=== PATIENT | female | born 1935 | race Caucasian/White ===

== ENCOUNTER 2023-05-13 16:13 | Inpatient (IN) | payer OTHER ==
--- OUTSIDE RECORDS SUMMARY | 2023-05-13 16:15 | XMS REPORT | Clinical Summary ---
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 0 Active Active Problems No known active problems Surgical History Surgery Date Site/Laterality Comments COLONOSCOPY HYSTERECTOMY UPPER GASTROINTESTINAL ENDOSCOPY Medical History Medical History Date Comments Hypertension 5 years ago Hearing loss Functional visual loss Tooth disorder Ulcer 12-30-15 Polyp 01-29-16 Urinary tract infection Menopause Fracture Complication of internal prosthetic device Presence of other specified device Diabetes mellitus Ovarian Ca Cancer of skin Family History Medical History Relation Name Comments -Endocrine (Thyroid, Pituitary, Adrenal) Daughter matt Relation Name Status Comments Daughter matt Social History Tobacco Use Types Packs/Day Years Used Date Smoking Tobacco: Never Smokeless Tobacco: Never Tobacco Cessation:Ready to Q uit: No Alcohol Use Standard Drinks/Week Comments No 0 (1 standard drink = 0.6 oz pur e alcohol) Sex and Gender Information Value Date Recorded Sex Assigned at Not on file Gender Identity Not on file Sexual Orientation Not on file Obstetrics History Plan of Treatment Health Maintenance Due Date Last Done Comments COVID-19 Vaccination (#1) 02/10/1934
[2023-05-13] MEDS ORDERED: NA CHLORIDE 0.9% 1,000 ML ONE (16:59)
[2023-05-13 17:07] LABS: Specific Gravity 1.014 (1.005-1.030); Urine Bacteria 20-50 /HPF (<20); Urine Bilirubin NEGATIVE (Negative); Urine Blood Negative (Negative); Urine Clarity Extremely Turbid (Clear); Urine Color Light-Yellow (Yellow); Urine Glucose NEGATIVE (Negative); Urine Protein NEGATIVE (Negative); Urine RBC <5 /HPF (None Seen); Urine Urobilinogen Normal (Normal); Urine pH 5.5 (5.0-7.0)
[2023-05-13] MEDS ORDERED: CEFTRIAXONE 1000 MG/VIAL ONE (17:09)
--- NOTE | 2023-05-13 17:11 | RAD REPORT ---
EXAM DESCRIPTION: RAD - Chest Single View - 05/13/2023 5:04 pm CLINICAL HISTORY: CHEST PAIN COMPARISON: No comparisons FINDINGS: Lines: None. Lungs: No evidence of edema or pneumonia. Pleural: No significant pleural effusions or pneumothorax. Cardiac: Cardiomegaly. Pacemaker. Mediastinum: Within normal limits. Bones: No acute fractures. Other: None IMPRESSION: No acute cardiopulmonary disease.
[2023-05-13 17:24] LABS: Absolute Lymphocytes (CBC) 2.2 K/uL (0.7-4.9); Albumin 2.8 g/dL (3.4-5.0); Bilirubin Direct 0.1 mg/dL (0-0.2); Bilirubin Indirect, Calculated 0.3 mg/dL (0.2-0.8); Bilirubin Total 0.4 mg/dL (0.2-1.0); Hematocrit 19.3 % (36.0-45.0); Lymphocytes % 20.6 % (15.3-44.8); MCV 85.9 fL (80-100); MPV 6.9 fL (7.6-11.3); Magnesium 2.1 mg/dL (1.6-2.4); Platelets 471 thou/uL (152-406); Protein, Total 6.2 g/dL (6.4-8.2); RBC Red Blood Cell Count 2.25 M/uL (3.86-4.86); Troponin High Sensitivity 10.8 pg/mL (<58.9)
--- NOTE | 2023-05-13 17:40 | RAD REPORT ---
EXAM DESCRIPTION: CT - [id number] - 05/13/2023 5:28 pm CLINICAL HISTORY: Trauma, head and neck injury. DIZZINESS COMPARISON: No comparisons TECHNIQUE: Axial 5 mm thick images of the head were obtained. Axial 2 mm thick images of the cervical spine were obtained with sagittal and coronal reconstruction images generated and reviewed. All CT scans are performed using dose optimization technique as appropriate and may include automated exposure control or mA/KV adjustment according to patient size. FINDINGS: CT HEAD WITHOUT CONTRAST: No acute hemorrhage, hydrocephalus or extra-axial collection is identified.No areas of brain edema or midline shift. Mild chronic small vessel ischemic changes. Small area of white matter hypoattenuatio n at the left occipital lobe. The paranasal sinuses and mastoids are clear.The calvarium is intact. CT CERVICAL SPINE WITHOUT CONTRAST: No fracture or subluxation.No prevertebral soft tissues swelling is identified. Approximate 2 mm ante rolisthesis of C4 on C5. Mild cervical spondylosis with neural foraminal narrowing IMPRESSION: No definite acute intracranial or cervical spine findings.Possible left occipital lobe c ortical infarct that would be favored chronic. MRI could better establish acuity.
--- NOTE | 2023-05-13 17:55 | EDPHYS ---
Physician Documentation [facility] Name: Milagro Cody Age: 87 yrs Sex: Female : 1935 Arrival Date: 05/13/2023 Time: 16:13 Bed 19 Private MD: ED Physician Nick Small HPI: 05/13 16:43 This 87 yrs old Female presents to ER via EMS with complaints of weakness. sb4 16:45 patient reports generalized weakness and dizziness x 3 days that is progressively sb4 worsening. she feels like it is secondary to her blood pressure being lower than usual. no other complaints, no chest pain, sob, fever, chills, urinary symptoms. Historical: - Allergies: 16:23 Eliquis; as6 16:23 Iodine; as6 - PMHx: 16:23 gastric ulcer; Diabetes mellitus; Hypertensive disorder; as6 - PSHx: 16:23 pacemaker; as6 - Immunization history:: Adult Immunizations up to date. - Social history:: Smoking status: Patient denies any tobacco usage or history of. ROS: 16:45 Constitutional: Negative for fever, chills, and weight loss, sb4 16:45 Neuro: Positive for weakness, Exam: 16:45 Constitutional: This is a well developed, well nourished patient who is awake, alert, sb4 and in no acute distress. Head/Face: Normocephalic, atraumatic. Eyes: Extra-ocular motions intact. Periorbital areas with no swelling, redness, or edema. ENT: Mucous membranes moist. Cardiovascular: Regular rate and rhythm with a normal S1 and S2. Respiratory: Lungs have equal breath sounds bilaterally, clear to auscultation and percussion. No rales, rhonchi or wheezes noted. No increased work of breathing, no retractions or nasal flaring. Abdomen/GI: Soft, non-tender, no distension. Skin: Warm, dry with normal turgor. Normal color with no rashes, no lesions, and no evidence of cellulitis. MS/ Extremity: Pulses equal, no cyanosis. Neurovascular intact. Full, normal range of motion. Neuro: Awake and alert, GCS 15, oriented to person, place, time, and situation. Motor strength 5/5 in all extremities. Sensory grossly intact. 18:00 Abdomen/GI: Rectal exam: is unremarkable, rectal tone normal, Stool: brown, sb4 Vital Signs: 16:25 BP 101 / 51; Pulse 80; Resp 17 S; Temp 97.7(O); Pulse Ox 100% on R/A; Weight 73.03 kg as6 (R); Height 5 ft. 2 in. (R); Pain 0/10; 17:30 BP 114 / 48; Pulse 80; Resp 18; Pulse Ox 100% ; cp4 18:30 BP 111 / 53; Pulse 80; Resp 18; Pulse Ox 98% ; cp4 19:00 BP 124 / 47; Pulse 80; Pulse Ox 100% on R/A; nw1 19:30 BP 128 / 54; Pulse 80; Resp 19; Pulse Ox 100% on R/A; nw1 20:15 BP 110 / 52; Pulse 80; Pulse Ox 100% ; nw1 20:19 BP 124 / 49; Pulse 80; Resp 18; Pulse Ox 96% on R/A; nw1 16:25 Body Mass Index 29.45 (73.03 kg, 157.48 cm) as6 16:25 Pain Scale: Adult as6 MDM: 16:16 Patient medically screened. sb4 17:54 Data reviewed: vital signs, nurses notes, EMS record, lab test result(s), EKG, sb4 radiologic studies, and as a result, I will admit patient. Consideration of Admission/Observation Patient was admitted/placed on observation. Historians other than the Patient: Family Member: granddaughter. Care significantly affected by the following chronic conditions: Diabetes, Hypertension. Counseling: I had a detailed discussion with the patient and/or guardian regarding the historical points, exam findings, and any diagnostic results supporting the discharge/admit diagnosis, lab results, radiology results, the need for further work-up and treatment in the hospital. 05/13 16:37 Order name: Basic Metabolic Panel; Complete Time: 17:25 sb4 05/13 16:37 Order name: CBC with Diff; Complete Time: 17:25 sb4 05/13 16:37 Order name: LFT's; Complete Time: 17:25 sb4 05/13 16:37 Order name: Magnesium; Complete Time: 17:25 sb4 05/13 16:37 Order name: Troponin HS; Complete Time: 17:25 sb4 05/13 16:37 Order name: UAM; Complete Time: 17:07 sb4 05/13 16:52 Order name: COVID-19/FLU A+B/RSV sb4 05/13 17:07 Order name: Urine Culture sb4 05/13 17:30 Order name: Type And Screen sb4 05/13 17:33 Order name: Bb Add On eb 05/13 17:44 Order name: Packed RBC Leukored EDLA 05/13 18:43 Order name: ABO/RH no charge EDMS 05/13 19:27 Order name: Urinalysis w/ reflexes EDMS 05/13 19:27 Order name: CBC with Automated Diff EDMS 05/13 19:27 Order name: CBC with Automated Diff EDMS 05/13 19:27 Order name: Comprehensive Metabolic Panel EDMS 05/13 19:27 Order name: Comprehensive Metabolic Panel EDMS 05/13 19:27 Order name: Magnesium EDMS 05/13 19:27 Order name: Magnesium EDMS 05/13 19:27 Order name: Troponin High Sensitivity EDMS 05/13 19:27 Order name: Troponin High Sensitivity EDMS 05/13 20:11 Order name: Hematocrit EDMS 05/13 20:11 Order name: Hemoglobin EDMS 05/13 16:37 Order name: XRAY Chest (1 view); Complete Time: 17:13 sb4 05/13 17:25 Order name: Head C Spine Mpr Wo Con; Complete Time: 17:53 EDMS 05/13 16:37 Order name: EKG; Complete Time: 16:38 sb4 05/13 19:27 Order name: CONS Physician Consult EDLA 05/13 16:37 Order name: Cardiac monitoring; Complete Time: 16:39 sb4 05/13 16:37 Order name: EKG - Nurse/Tech; Complete Time: 16:39 sb4 05/13 16:37 Order name: IV Saline Lock; Complete Time: 16:39 sb4 05/13 16:37 Order name: Labs collected and sent; Complete Time: 16:39 sb4 05/13 16:37 Order name: O2 Per Protocol; Complete Time: 16:39 sb4 05/13 16:37 Order name: O2 Sat Monitoring; Complete Time: 16:39 sb4 EC:45 Rate is 80 beats/min. Rhythm is regular, Paced. [place] interval is normal at 152 msec. QRS sb4 interval is normal at 172 msec. QT interval is normal at 452 msec. No Q waves. Interpreted by me. Reviewed by me. Administered Medications: 16:57 Drug: NS 0.9% IV 1000 ml IV at 1 bolus Per protocol; 1000 mL bolus Route: IV; Rate: 1 cp4 bolus; Site: right antecubital; 18:15 Follow up: Response: No adverse reaction; IV Status: Completed infusion cp4 17:16 Drug: Rocephin IV 1 grams IV at calculated rate once; Given slow IV push per pharmacy cp4 instructions Route: IV; Rate: calculated rate; Site: right antecubital; 18:14 Follow up: Response: No adverse reaction; IV Status: Completed infusion cp4 Disposition: 05/14 09:54 Co-signature as Attending Physician, Nick Small MD I reviewed the patient's care rt provided by the Advanced Practice Provider and agree with the diagnosis and treatment plan. Disposition Summary: 05/13/23 17:55 Hospitalization Ordered Notes: Hospitalization Status: Inpatient Admission sb4 Provider: Pranav Munoz sb4 [facility] Condition: Fair sb4 Problem: new sb4 Symptoms: are unchanged sb4 Bed/Room Type: Standard sb4 Room Assignment: 232(05/13/23 19:35) rv1 Diagnosis - Anemia, unspecified sb4 - Hypotension, unspecified sb4 Forms: - Medication Reconciliation Form sb4 - SBAR form sb4 - Leadership Thank You Letter sb4 Signatures: Dispatcher [employer] Kelby Romo RN RN as6 Jeaneth Wang PA-C PAAdriane sb4 Nick Small MD MD rt Randee Rizvi rv1 Kyara Urrutia cp4 Corrections: (The following items were deleted from the chart) 05/13 17:25 16:38 Head Brain Wo Cont+CT.RAD.BRZ ordered. EDMS EDMS 19:35 17:55 sb4 rv1 20:16 20:11 Packed RBC Leukored ordered. EDMS EDMS 20:16 20:12 ABO/RH typing ordered. EDMS EDMS 20:16 20:12 Antibody Screen ordered. EDMS EDMS
--- NOTE | 2023-05-13 17:55 | ER ---
Nurse's Notes [facility] Name: Milagro Cody Age: 87 yrs Sex: Female : 1935 Arrival Date: 05/13/2023 Time: 16:13 Bed 19 Private MD: Diagnosis: Anemia, unspecified;Hypotension, unspecified Presentation: 05/13 16:25 Chief complaint: EMS states: dizziness for several days with worsening symptoms today. as6 Coronavirus screen: At this time, the client does not indicate any symptoms associated with coronavirus-19. Ebola Screen: No symptoms or risks identified at this time. Initial Sepsis Screen: Does the patient meet any 2 criteria? No. Patient's initial sepsis screen is negative. Does the patient have a suspected source of infection? No. Patient's initial sepsis screen is negative. Risk Assessment: Do you want to hurt yourself or someone else? Patient reports no desire to harm self or others. Onset of symptoms was May 13, 2023. 16:25 Acuity: PEDRO 3 as6 16:25 Method Of Arrival: EMS: [email or web address] as6 Historical: - Allergies: 16:23 Eliquis; as6 16:23 Iodine; as6 - PMHx: 16:23 gastric ulcer; Diabetes mellitus; Hypertensive disorder; as6 - PSHx: 16:23 pacemaker; as6 - Immunization history:: Adult Immunizations up to date. - Social history:: Smoking status: Patient denies any tobacco usage or history of. Screenin:[address] [facility] ED Fall Risk Assessment (Adult) History of falling in the last 3 months, cp4 including since admission No falls in past 3 months (0 pts). [facility] ED Fall Risk Assessment (Adult) Confusion or Disorientation No (0 pts) Intoxicated or Sedated No (0 pts) Impaired Gait No (0 pts) Mobility Assist Device Used No (0 pt) Altered Elimination No (0 pt) Score/Fall Risk Level 0 - 2 = Low Risk Oriented to surroundings, Maintained a safe environment, Educated pt \T\ family on fall prevention, incl call for assistance when getting out of bed, Assessed \T\ reinforced patient's understanding of fall precautions, Provided non-skid footwear, Hourly rounding (assess needs \T\ fall precautionary measures) done. Abuse screen: Denies threats or abuse. Nutritional screening: No deficits noted. Tuberculosis screening: No symptoms or risk factors identified. Assessment: 17:46 Pain: Denies pain. cp4 Vital Signs: 16:25 BP 101 / 51; Pulse 80; Resp 17 S; Temp 97.7(O); Pulse Ox 100% on R/A; Weight 73.03 kg as6 (R); Height 5 ft. 2 in. (R); Pain 0/10; 17:30 BP 114 / 48; Pulse 80; Resp 18; Pulse Ox 100% ; cp4 18:30 BP 111 / 53; Pulse 80; Resp 18; Pulse Ox 98% ; cp4 19:00 BP 124 / 47; Pulse 80; Pulse Ox 100% on R/A; nw1 19:30 BP 128 / 54; Pulse 80; Resp 19; Pulse Ox 100% on R/A; nw1 20:15 BP 110 / 52; Pulse 80; Pulse Ox 100% ; nw1 20:19 BP 124 / 49; Pulse 80; Resp 18; Pulse Ox 96% on R/A; nw1 16:25 Body Mass Index 29.45 (73.03 kg, 157.48 cm) as6 16:25 Pain Scale: Adult as6 ED Course: 16:15 Patient arrived in ED. cp4 16:16 Jeaneth Wang PA-C is PHCP. sb4 16:16 Nick Small MD is Attending Physician. sb4 16:23 Arm band placed on. as6 16:26 Triage completed. as6 16:26 Maintain EMS IV. Dressing intact. Good blood return noted. Site clean \T\ dry. Gauge \T\ as 6 site: 20g RAC. 16:39 Kyara Urrutia is Primary Nurse. cp4 16:57 UAM Sent. cp4 16:57 Basic Metabolic Panel Sent. cp4 16:57 CBC with Diff Sent. cp4 16:57 LFT's Sent. cp4 16:57 Magnesium Sent. cp4 16:57 Troponin HS Sent. cp4 17:06 XRAY Chest (1 view) In Process Unspecified. EDMS 17:29 Head C Spine Mpr Wo Con In Process Unspecified. EDMS 17:46 Bed in low position. Call light in reach. Side rails up X2. cp4 17:54 Pranav Munoz is Hospitalizing Provider. sb4 20:15 Kadie Cody, RN is Primary Nurse. nw1 20:35 Inserted saline lock: 20 gauge in left hand, using aseptic technique. nw1 20:37 Patient admitted, IV remains in place. nw1 Administered Medications: 16:57 Drug: NS 0.9% IV 1000 ml IV at 1 bolus Per protocol; 1000 mL bolus Route: IV; Rate: 1 cp4 bolus; Site: right antecubital; 18:15 Follow up: Response: No adverse reaction; IV Status: Completed infusion cp4 17:16 Drug: Rocephin IV 1 grams IV at calculated rate once; Given slow IV push per pharmacy cp4 instructions Route: IV; Rate: calculated rate; Site: right antecubital; 18:14 Follow up: Response: No adverse reaction; IV Status: Completed infusion cp4 Medication: 17:46 VIS not applicable for this client. cp4 Outcome: 17:55 Decision to Hospitalize by Provider. sb4 20:20 Admitted to Tele accompanied by tech, room 232, with chart, Report called to LILI Alcaraz nw1 20:20 Condition: stable 20:20 Instructed on the need for admit, 21:15 Patient left the ED. nw1 Signatures: Dispatcher [employer] EDMS Kelby Isbell RN RN as6 Jeaneth Wang, PA-C PA-C sb4 Kyara Urrutia cp4 Kadie Cody, RN RN nw1
[2023-05-13] MEDS ORDERED: ACETAMINOPHEN 325 MG TABLET PO PRN (19:23)
[2023-05-13] MEDS ORDERED: SODIUM CHLORIDE 0.9% 10ML INJ IV PRN (19:25)
[2023-05-13] MEDS ORDERED: D50W 25 GM/50 ML SYRINGE IV PRN (19:28)
[2023-05-13] MEDS ORDERED: GLUCAGON 1 MG/VIAL IM PRN (19:28)
[2023-05-13] MEDS: FUROSEMIDE 20 MG/ 2ML VIAL IV ONE (20:07)
--- NOTE | 2023-05-13 20:07 | P.HP ---
Certification for Inpatient With expected LOS: >2 Midnights Practitioner: I am a practitioner with admitting privileges, knowledge of patient current condition, hospital course, and medical plan of care. Services: Services provided to patient in accordance with Admission requirements found in Title 42 Section 412.3 of the Code of Federal Regulations Patient History Date of Service: 05/13/23 Reason for admission: GI bleed History of Present Illness: 87-year-old female with a history of diabetes mellitus, A-fib on Eliquis, gastric ulcer, pacemaker and hypertension was brought to the ED with weakness a nd dizziness for the last 3 to 4 days that worsened today. Patient had no falls and denied any blurring of vision, fever, headaches, abdominal pain, nausea, vomiting or diarrhea. She reported some episodes of dark tarry stools last week. On arrival to the ER initial BP was 101/51. Labs showed H&H 6.8/19.3, glucose 214, Na 130 and BUN/Cr 40/1.42. Chest x-ray was negative. She was given IV fluid bolus and a gram of Rocephin. 2 units PRBC ordered. Allergies No Known Allergies Allergy (Unverified 05/29/11 22:09) Home Medications: NK 05/29/11 Review of Systems 10-point ROS is otherwise unremarkable Physical Examination - Vital Signs Temperature: 97.7 F Blood Pressure: 101/51 Pulse: 80 Respirations: 17 Pulse Ox (%): 100 - Physical Exam General: Alert, Oriented x3 HEENT: Atraumatic, Normocephalic, PERRLA, Other (Pale) Neck: JVD not distended Respiratory: Clear to auscultation bilaterally, Normal air movement Cardiovascular: Normal pulses, Regular rate/rhythm, Normal S1 S2 Gastrointestinal: Normal bowel sounds, Soft and benign, Non-distended, No tenderness Musculoskeletal: No swelling, No erythema, No tenderness Integumentary: No breakdown, No significant lesion, No tenderness/swelling Neurological: Normal speech, Normal strength at 5/5 x4 extr, Sensation intact - Studies Laboratory Data (last 24 hrs) 05/13/23 05/13/23 16:40 16:40 WBC 10.80 Hgb 6.8 L Hct 19.3 L Plt Count 471 H Sodium 130 L Potassium 5.0 BUN 40 H Creatinine 1.42 H Glucose 214 H Magnesium 2.1 Total Bilirubin 0.4 AST 10 L ALT 17 Alkaline Phosphatase 76 Assessment and Plan - Plan Melena Acute blood loss anemia Orthostatic hypotension Acute kidney injury Diabetes mellitus Atrial Fibrillation coagulated with Eliquis History of hypertension Plan IV Protonix twice daily Transfusing 2 units PRBC Follow-up posttransfusion H&H GI consult Hold Eliquis NS at 100 cc/h Blood glucose monitoring with sliding scale insulin - Advance Directives Does patient have a Living Will: No Does patient have a Durable POA for Healthcare: No
[2023-05-13] MEDS: INSULIN REGULAR (HUMAN) 100 UNIT/ML SQ SCH (21:00)
[2023-05-13] MEDS ORDERED: NA CHLORIDE 0.9% 250 ML IV SCH (21:00)
[2023-05-13] MEDS ORDERED: D10W 125 ML IV PRN (21:17)
[2023-05-13] MEDS ORDERED: NA CHLORIDE 0.9% 250 ML ONE (22:18)
[2023-05-13] MEDS: NA CHLORIDE 0.9% 1,000 ML IV SCH (22:26)
[2023-05-13] MEDS: PANTOPRAZOLE 40 MG INJ IVP SCH (22:27)
[2023-05-14] VITALS: BMI 29.4
[2023-05-14] MEDS ORDERED: FUROSEMIDE 20 MG/ 2ML VIAL ONE (04:49)
[2023-05-14] MEDS: FUROSEMIDE 20 MG/ 2ML VIAL IV ONE (04:53)
[2023-05-14 07:16] LABS: Absolute Lymphocytes (CBC) 4.1 K/uL (0.7-4.9); Hematocrit 29.4 % (36.0-45.0); Lymphocytes % 27.4 % (15.3-44.8); MCV 84.1 fL (80-100); MPV 6.8 fL (7.6-11.3); Platelets 438 thou/uL (152-406)
[2023-05-14] MEDS: INSULIN REGULAR (HUMAN) 100 UNIT/ML SQ SCH ×4 (07:30→21:00)
[2023-05-14 07:32] LABS: Albumin 2.8 g/dL (3.4-5.0); Bilirubin Total 0.5 mg/dL (0.2-1.0); Magnesium 2.2 mg/dL (1.6-2.4); Potassium 4.3 mEq/L (3.5-5.1); Protein, Total 6.6 g/dL (6.4-8.2); Troponin High Sensitivity 18.6 pg/mL (<58.9)
[2023-05-14] MEDS: PANTOPRAZOLE 40 MG INJ IVP SCH ×2 (08:22→21:04)
[2023-05-14] MEDS: NA CHLORIDE 0.9% 1,000 ML IV SCH ×2 (09:20→17:43)
--- NOTE | 2023-05-14 13:54 | P.PN ---
Subjective Date of Service: 05/14/23 Chief Complaint: GI bleed Patient has no new complaint today. She denies abdominal pain. She reports a episode of black stool yesterday. She denies any dizziness now. Physical Examination - Vital Signs Temperature: 98.0 F Blood Pressure: 127/61 Pulse: 80 Respirations: 17 Pulse Ox (%): 99 - Studies Laboratory Data (last 24 hrs) 05/13/23 05/13/23 16:40 16:40 WBC 10.80 Hgb 6.8 L Hct 19.3 L Plt Count 471 H Sodium 130 L Potassium 5.0 BUN 40 H Creatinine 1.42 H Glucose 214 H Magnesium 2.1 Total Bilirubin 0.4 AST 10 L ALT 17 Alkaline Phosphatase 76 Assessment And Plan - Plan Physical Examination General: Well-built, Not in acute distress. Frail appearing HEENT: Anicteric sclera, conjunctiva not pale. Neck: Supple, no elevated JVD. Lungs: Clear to auscultation bilaterally. No rhonchi, no rales, no crackles. Heart: S1-S2 heard, normal rate, no murmur no gallop no rub. Normal capillary refill. Abdomen: Soft, nontender, nondistended, no hepatosplenomegaly. Extremities: No pedal edema. No deformity. Neuro: No cranial nerve deficit, no focal motor deficit. Psychiatry: Awake, normal behavior, normal affect. Skin: Warm and dry, no rashes. Diagnosis GI bleed Acute blood loss anemia Acute kidney injury Diabetes mellitus Atrial Fibrillation coagulated with Eliquis Essential hypertension Plan GI Bleed Acute blood loss anemia/symptomatic anemia Patient reports remote history of peptic ulcer disease. GI bleed likely secondary to peptic ulcer. Status post 2 unit PRBC transfusion. Posttransfusion hemoglobin is up to [address] Rodríguez consulted. Dr. Rodríguez recommended EGD today Monitor H&H and transfuse as needed for hemoglobin less than 7 Monitor for active bleeding. Xarelto is on hold Acute kidney injury Serum creatinine is improving with IV fluid. Continue IV normal saline. Monitor renal function. Diabetes mellitus type 2 Insulin sliding scale for glucose management. Chronic atrial fibrillation/long-term anticoagulation Continue Coreg once diet is resumed. Hold Xarelto due to GI bleed. Essential Hypertension Coreg resumed for atrial fibrillation. Monitor blood pressure closely DVT prophylaxis: SCD.
[2023-05-14] MEDS: ISOSORBIDE DINIT 5 MG TAB PO SCH ×2 (14:45→21:04)
[2023-05-14] MEDS: carvediloL 25 MG TAB PO SCH (17:33)
[2023-05-14] MEDS: ATORVASTATIN 80 MG TAB PO SCH (21:04)
[2023-05-15 06:48] LABS: Potassium 4.2 mEq/L (3.5-5.1)
[2023-05-15] MEDS: NA CHLORIDE 0.9% 1,000 ML IV SCH ×2 (06:56→20:04)
[2023-05-15] MEDS: INSULIN REGULAR (HUMAN) 100 UNIT/ML SQ SCH ×4 (07:30→20:04)
[2023-05-15] MEDS: CEFTRIAXONE 1,000 MG in NA CHLORIDE 0.9% 50 ML IVPB SCH (08:31)
[2023-05-15] MEDS: PANTOPRAZOLE 40 MG INJ IVP SCH ×2 (08:32→20:03)
[2023-05-15] MEDS: SPIRONOLACTONE 25 MG TABLET PO SCH (08:39)
[2023-05-15] MEDS: EZETIMIBE 10 MG TAB PO SCH (08:40)
[2023-05-15] MEDS: carvediloL 25 MG TAB PO SCH ×2 (08:40→16:50)
[2023-05-15] MEDS: ISOSORBIDE DINIT 5 MG TAB PO SCH ×3 (08:41→20:03)
--- NOTE | 2023-05-15 09:54 | P.PN ---
Date of Service: 05/15/23 Subjective: tentative plan for EGD today no acute events overnight given 2 uPRBC yesterday reports having peptic ulcer ~2015 HR stable, afebrile, BP intermittently low-normal ROS: 10 point ROS as noted above, otherwise negative Physical Exam: GEN: Alert, oriented, frail appearing HEENT: Normal conjunctiva, sclera anicteric, CV: Regular rate and rhythm, no edema Pulm: Nonlabored respirations on room air, clear bilaterally ABD: soft, nontender, nondistended Neuro: Normal speech, normal affect, hard of hearing Problem List: Acute blood loss anemia/symptomatic anemia likely secondary to GI bleed h/o peptic ulcer disease E. coli bacteriuria TREVON NIDDM2 Chronic Atrial-Fibrillation, on Eliquis Essential hypertension Acute blood loss anemia/symptomatic anemia likely secondary to GI bleed h/o peptic ulcer disease CT head (05/13): no definite acute intracranial findings. possible left occipital lobe cortical infarct would be favored chronic Patient reports remote history of peptic ulcer disease ~2015 GI bleed likely secondary to peptic ulcer. s/p 2 uPRBC (05/13, 05/14) Continue to monitor H&H. Transfuse for hgb < 7. hgb 10.1 -> 8.5 (05/15) Monitor for active bleeding. Xarelto on hold given bleed continue PPI GI consulted tentative plan for EGD today with Dr. Burgos E. coli bacteriuria urine cx (05/13): E. Coli Start empiric rocephin (05/15-) afebrile, no leukocytosis TREVON continue IV fluids Continue to monitor renal function improving NIDDM2 Accu-checks, Insulin sliding scale Chronic Atrial-Fibrillation, on Eliquis Xarelto on hold due to GI bleed. Continue home coreg Essential Hypertension Continue home coreg VTE: SCD for now given GI bleed. Code: Full Dispo: Home . ~1-2 days Pending EGD, hgb stabilizes
[2023-05-15] MEDS ORDERED: LIDOCAINE 1% MPF 5 ML VIAL ONE (12:34)
[2023-05-15] MEDS ORDERED: propofoL 200 MG/20 ML VIAL IV ONE (12:34)
[2023-05-15] MEDS ORDERED: EPINEPHRINE 1 MG/ML VIAL ONE (12:56)
[2023-05-15] MEDS ORDERED: GOLYTELY 4000 ML PO SCH (14:00)
[2023-05-15] MEDS ORDERED: BISACODYL E.C. 5 MG TAB PO ONE (14:30)
[2023-05-15] MEDS ORDERED: MAGNESIUM CITRATE 300 ML BOT PO SCH ×2 (14:30→15:00)
[2023-05-15] MEDS ORDERED: BISACODYL E.C. 5 MG TAB PO SCH (15:00)
[2023-05-15] MEDS: METOCLOPRAMIDE 10 MG/2mL INJ IV SCH ×2 (15:13→18:16)
[2023-05-15] MEDS ORDERED: ONDANSETRON 4 MG/2 ML VIAL IV PRN (19:35)
[2023-05-15] MEDS: ATORVASTATIN 80 MG TAB PO SCH (20:03)
[2023-05-16] MEDS: METOCLOPRAMIDE 10 MG/2mL INJ IV SCH (00:04)
[2023-05-16] MEDS: INSULIN REGULAR (HUMAN) 100 UNIT/ML SQ SCH ×4 (07:30→21:00)
[2023-05-16 07:35] LABS: Absolute Lymphocytes (CBC) 2.7 K/uL (0.7-4.9); Hematocrit 26.6 % (36.0-45.0); Lymphocytes % 23.2 % (15.3-44.8); MCV 85.4 fL (80-100); MPV 6.5 fL (7.6-11.3); Platelets 430 thou/uL (152-406); RBC Red Blood Cell Count 3.11 M/uL (3.86-4.86)
[2023-05-16 07:52] LABS: Magnesium 2.4 mg/dL (1.6-2.4); Potassium 3.8 mEq/L (3.5-5.1)
[2023-05-16] MEDS: SPIRONOLACTONE 25 MG TABLET PO SCH (08:17)
[2023-05-16] MEDS: CEFTRIAXONE 1,000 MG in NA CHLORIDE 0.9% 50 ML IVPB SCH (08:18)
[2023-05-16] MEDS: carvediloL 25 MG TAB PO SCH ×2 (08:18→17:10)
[2023-05-16] MEDS: EZETIMIBE 10 MG TAB PO SCH (08:18)
[2023-05-16] MEDS: PANTOPRAZOLE 40 MG INJ IVP SCH ×2 (08:19→21:14)
[2023-05-16] MEDS: ISOSORBIDE DINIT 5 MG TAB PO SCH ×3 (08:19→21:14)
--- NOTE | 2023-05-16 08:27 | P.PN ---
Date of Service: 05/16/23 Subjective: s/p 4 enemas overnight/today had EGD yesterday; plan for colonoscopy today +dark black stool noted overnight denies UTI symptoms afebrile ROS: 10 point ROS as noted above, otherwise negative Physical Exam: GEN: Alert, oriented, frail appearing HEENT: Normal conjunctiva, sclera anicteric, CV: Regular rate and rhythm, no edema Pulm: Nonlabored respirations on room air, clear bilaterally ABD: soft, nontender, nondistended Neuro: Normal speech, normal affect, hard of hearing Problem List: Acute blood loss anemia/symptomatic anemia likely secondary to GI bleed Grade 1 Esophagitis, Mild diffuse gastritis h/o peptic ulcer disease E. coli bacteriuria TREVON on CKD 3 NIDDM2 Chronic Atrial-Fibrillation, on anticoagulation Essential hypertension Acute blood loss anemia/symptomatic anemia likely secondary to GI bleed Grade 1 Esophagitis, Mild diffuse gastritis h/o peptic ulcer disease CT head (05/13): no definite acute intracranial findings. possible left occipital lobe cortical infarct would be favored chronic Patient reports remote history of peptic ulcer disease ~2015 s/p 2 uPRBC (05/13, 05/14) Continue to monitor H&H. Transfuse for hgb < 7. hgb 8.9 -> 9.0 (05/16) Monitor for active bleeding. Xarelto on hold given bleed continue PPI GI consulted s/p EGD (05/16): found to have acute grade 1 esophagitis, mild diffuse gastritis. No obvious bleeding. tentative plan for colonoscopy today follow up in GI clinic in ~1-2 weeks Follow biopsies E. coli bacteriuria urine cx (05/13): E. Coli continue empiric rocephin (05/15-) afebrile, no leukocytosis asymptomatic TREVON on CKD 3 continue IV fluids Continue to monitor renal function improving NIDDM2 Accu-checks, Insulin sliding scale Chronic Atrial-Fibrillation, on anticoagulation Xarelto on hold due to GI bleed. Continue home coreg Essential Hypertension Continue home coreg VTE: SCD for now given GI bleed. Code: Full Dispo: Home . ~1-2 days Pending colonoscopy, hgb remains stable
[2023-05-16] MEDS ORDERED: NA CHLORIDE 0.9% 1,000 ML ONE (09:30)
[2023-05-16] MEDS: NA CHLORIDE 0.9% 1,000 ML IV SCH ×2 (09:42→23:02)
[2023-05-16] MEDS ORDERED: propofoL 200 MG/20 ML VIAL IV ONE (10:08)
[2023-05-16 11:20] VITALS: O2SAT 97
[2023-05-16] MEDS: ATORVASTATIN 80 MG TAB PO SCH (21:13)
[2023-05-17 06:09] LABS: Hematocrit 22.9 % (36.0-45.0); MCV 85.2 fL (80-100); MPV 6.9 fL (7.6-11.3); Platelets 391 thou/uL (152-406); RBC Red Blood Cell Count 2.69 M/uL (3.86-4.86)
[2023-05-17 06:12] LABS: Potassium 4.1 mEq/L (3.5-5.1)
[2023-05-17] MEDS: INSULIN REGULAR (HUMAN) 100 UNIT/ML SQ SCH ×4 (07:30→20:23)
--- NOTE | 2023-05-17 09:36 | P.PN ---
Date of Service: 05/17/23 Subjective: small BM this morning - yellowish had small bowel series today, hasn't really eaten much in last few days no epigastric pain ROS: 10 point ROS as noted above, otherwise negative Physical Exam: GEN: Alert, oriented, frail appearing HEENT: Normal conjunctiva, sclera anicteric CV: Regular rate and rhythm, no edema Pulm: Nonlabored respirations on room air, clear bilaterally ABD: soft, nontender, nondistended Neuro: Normal speech, normal affect, hard of hearing Problem List: Acute blood loss anemia/symptomatic anemia likely secondary to GI bleed Grade 1 Esophagitis, Mild diffuse gastritis, Internal Hemorrhoids h/o peptic ulcer disease E. coli bacteriuria TREVON on CKD 3 NIDDM2 Chronic Atrial-Fibrillation, on anticoagulation Essential hypertension Acute blood loss anemia/symptomatic anemia likely secondary to GI bleed Grade 1 Esophagitis, Mild diffuse gastritis, Internal Hemorrhoids h/o peptic ulcer disease CT head (05/13): no definite acute intracranial findings. possible left occipital lobe cortical infarct would be favored chronic Patient reports remote history of peptic ulcer disease ~2015 s/p 2 uPRBC (05/13, 05/14) hgb 9 -> 8 (05/17) Monitor for active bleeding. Xarelto on hold given bleed continue PPI GI consulted s/p EGD (05/15): found to have acute grade 1 esophagitis, mild diffuse gastritis. No obvious bleeding. s/p colonoscopy (05/16): found internal hemorrhoids - not actively bleeding, intubation to terminal ileum Small bowel xray (05/17): normal small bowel series recommends capsule endoscopy. follow up in GI clinic in ~1-2 weeks Follow biopsies E. coli bacteriuria urine cx (05/13): E. Coli afebrile, leukocytosis resolved asymptomatic completed antibiotics TREVON on CKD 3 IV fluids dc'd 05/16 continue spironolactone Continue to monitor renal function improving NIDDM2 Accu-checks, Insulin sliding scale Chronic Atrial-Fibrillation, on anticoagulation Xarelto on hold due to GI bleed. Continue home coreg Essential Hypertension Continue home coreg VTE: SCD for now given GI bleed. Code: Full Dispo: Home ~1 day Pending hgb stabilizes / tolerates PO
--- NOTE | 2023-05-17 09:42 | RAD REPORT ---
EXAM DESCRIPTION: RAD - Small Bowel Series - 05/17/2023 9:31 am CLINICAL HISTORY: Occult GI bleed COMPARISON: No comparisons FINDINGS: [employer] Technician film shows a nonspecific bowel gas pattern. No obstruction or free air. No suspiciou s calcifications. Pacemaker/ICD. Left femoral kyle. Gastric size and mucosal fold pattern are normal. No delay in transit of contrast into the small viviana l. Small bowel is normal in diameter with no mucosal fold thickening. No intrinsic or extrinsic mass identifiable. Terminal ileum has normal appearance. Transit time to the colon is normal. No fluoroscopy was performed. Total images acquired: 12 IMPRESSION: Normal small bowel series.
[2023-05-17] MEDS: PANTOPRAZOLE 40 MG INJ IVP SCH ×2 (09:55→20:23)
[2023-05-17] MEDS: CEFTRIAXONE 1,000 MG in NA CHLORIDE 0.9% 50 ML IVPB SCH (09:55)
[2023-05-17] MEDS: SPIRONOLACTONE 25 MG TABLET PO SCH (09:56)
[2023-05-17] MEDS: carvediloL 25 MG TAB PO SCH ×2 (09:57→16:50)
[2023-05-17] MEDS: EZETIMIBE 10 MG TAB PO SCH (09:58)
[2023-05-17] MEDS: ISOSORBIDE DINIT 5 MG TAB PO SCH ×3 (09:58→20:23)
--- NOTE | 2023-05-17 13:42 | EKG ---
Test Date: 2023-05-13 Test Time: 16:28:42 Cigarette Tipper: FLACO MEASUREMENT RESULTS: Intervals: Rate: 80 MS: 152 QRSD: 172 QT: 452 QTc: 521 [place]: P: 49 MS: 152 QRS: 255 T: 98 INTERPRETIVE STATEMENTS: AV sequential or dual chamber electronic pacemaker Compared to ECG 01/27/2002 18:11:00 Sinus rhythm no longer present Left-axis deviation no longer present Left bundle-branch block no longer present Electronically Signed On 05-17-23 13:27:04 HAT BLOCK MAKER by Florencio Gonzlaes
[2023-05-17] MEDS: ATORVASTATIN 80 MG TAB PO SCH (20:23)
[2023-05-18 06:59] LABS: Absolute Lymphocytes (CBC) 2.7 K/uL (0.7-4.9); Hematocrit 23.3 % (36.0-45.0); Lymphocytes % 28.7 % (15.3-44.8); MCV 84.7 fL (80-100); MPV 6.6 fL (7.6-11.3); Platelets 403 thou/uL (152-406); RBC Red Blood Cell Count 2.75 M/uL (3.86-4.86)
[2023-05-18 07:04] LABS: Magnesium 1.9 mg/dL (1.6-2.4); Potassium 4.2 mEq/L (3.5-5.1)
[2023-05-18] MEDS: INSULIN REGULAR (HUMAN) 100 UNIT/ML SQ SCH ×2 (07:30→11:30)
[2023-05-18] MEDS: SPIRONOLACTONE 25 MG TABLET PO SCH (09:10)
[2023-05-18] MEDS: EZETIMIBE 10 MG TAB PO SCH (09:10)
[2023-05-18] MEDS: carvediloL 25 MG TAB PO SCH (09:10)
[2023-05-18] MEDS: METOCLOPRAMIDE 10 MG/2mL INJ IV SCH (09:11)
[2023-05-18] MEDS: PANTOPRAZOLE 40 MG INJ IVP SCH (09:11)
[2023-05-18 14:37] VITALS: BP 139/62; TEMP 97.2
--- NOTE | 2023-05-18 17:05 | P.DS ---
Admission Date: 05/13/23 Discharge Date: 05/18/23 Disposition: ROUTINE DISCHARGE Discharge Condition: GOOD Reason for Admission: GI bleed Consultations: GI - Dr. Burgos Brief History of Present Illness: 87yo F, PMH: diabetes mellitus, A-fib on Eliquis, gastric ulcer, pacemaker and hypertension Patient was brought to the ED with weakness and dizziness for the last 3 to 4 days that worsened today. Patient had no falls and denied any blurring of vision, fever, headaches, abdominal pain, nausea, vomiting or diarrhea. She reported some episodes of dark tarry stools last week. On arrival to the ER initial BP was 101/51. Labs showed H&H 6.8/19.3, glucose 214, Na 130 and BUN/Cr 40/1.42. Chest x-ray was negative. She was given IV fluid bolus and a gram of Rocephin. 2 units PRBC ordered. Hospital Course: Problem List: Acute blood loss anemia/symptomatic anemia likely secondary to GI bleed Grade 1 Esophagitis, Mild diffuse gastritis, Internal Hemorrhoids h/o peptic ulcer disease E. coli bacteriuria TREVON on CKD 3 NIDDM2 Chronic Atrial-Fibrillation, on anticoagulation Essential hypertension Patient presented with generalized weakness, dizziness, melena for past few days. Patient was found to have acute blood loss/symptomatic anemia secondary to suspected occult GI bleed. Hgb was 6.8 on admission. Patient required 2 uPRBC. Repeat hgb post transfusion improved to 10.1. Patient did not require any more blood transfusions. Hgb remained relatively stable in 8s for rest of hospitalization. GI was consulted. Patient taken to OR on 05/15, 05/16 for EGD / colonoscopy respectively to further evaluate GI bleed. Patient was found to have grade 1 esophagitis, mild diffuse gastritis, internal hemorrhoids. No active bleeds. Small bowel series was normal. No further inpatient work up. Recommend close follow up with GI as outpatient in 1-2 weeks for further work up / discuss possible capsule endoscopy. Recommend high fiber diet. The esophagitis and gastritis may have contributed to bleed, but can't rule out a bleeding source within the small intestine that could not be visualized by scopes. Bleeding did stop, and did not have any further dark stools and hemoglobin was stable. Patient was feeling better, ambulating without issues, abdominal pain improved, and was deemed stable for discharge. Advised to repeat blood work in ~1 week to monitor Hemoglobin / CBC. Hgb on discharge: 8.2. During her hospitalization, urine culture obtained on admission noted to grow E. coli. Patient was asymptomatic. Denied any urinary symptoms. She received ~3 days of empiric Rocephin as a precaution to cover possible UTI. Patient remained afebrile throughout her hospitalization. No further antibiotics warranted on discharge. Medications: Xarelto was held while hospitalized given GI bleed. Continue to hold xarelto for now. Okay to restart Sunday05/21/23. Pantoprazole, increased to twice a day for the next month, then can decrease back to once daily dosing Stop Hydralazine for now. Blood pressure this hospitalization has been low to low-normal off her home antihypertensives. Check blood pressure daily. Once consistently > 140, can restart Hydralazine as previously prescribed Advised to keep daily log of BP readings to take to follow up appointments in case home antihypertensives need to be adjusted / restarted. Continue other home meds not listed as previously prescribed. Follow up: PCP 3-5 days GI clinic 1-2 weeks Physical Exam: GEN: Alert, oriented, frail appearing HEENT: Normal conjunctiva, sclera anicteric CV: Regular rate and rhythm, no edema Pulm: Nonlabored respirations on room air, clear bilaterally ABD: soft, nontender, nondistended Neuro: Normal speech, normal affect, hard of hearing Vital Signs/Physical Exam: Temp Pulse Resp BP Pulse Ox 97.2 F 80 16 139/62 94 05/18/23 14:21 05/18/23 14:21 05/18/23 14:21 05/18/23 14:21 05/18/23 14:21 Laboratory Data at Discharge: WBC 9.40 thou/uL (4.3-10.9) 05/18/23 06:32 Hgb 8.2 g/dL (12.0-15.0) L 05/18/23 06:32 Hct 23.3 % (36.0-45.0) L 05/18/23 06:32 Plt Count 403 thou/uL (152-406) 05/18/23 06:32 Sodium 131 mEq/L (136-145) L 05/18/23 06:32 Potassium 4.2 mEq/L (3.5-5.1) 05/18/23 06:32 BUN 13 mg/dL (7-18) 05/18/23 06:32 Creatinine 1.14 mg/dL (0.55-1.02) H 05/18/23 06:32 Glucose 112 mg/dL (74-106) H 05/18/23 06:32 Magnesium 1.9 mg/dL (1.6-2.4) 05/18/23 06:32 Total Bilirubin 0.5 mg/dL (0.2-1.0) 05/14/23 06:25 AST 10 U/L (15-37) L 05/14/23 06:25 ALT 16 U/L (13-56) 05/14/23 06:25 Alkaline Phosphatase 79 U/L (45-117) 05/14/23 06:25 Home Medications: Aspirin [Aspirin EC] 81 mg PO DAILY 05/13/23 Atorvastatin Calcium [Lipitor] 80 mg PO BEDTIME 05/13/23 Carvedilol [Coreg] 25 mg PO BID 05/13/23 Ezetimibe 10 mg PO DAILY 05/13/23 Glimepiride 1 mg PO SEECOM 05/13/23 Isosorbide Dinitrate 10 mg PO TID 05/13/23 Rivaroxaban [Xarelto*] 15 mg PO DAILY 05/13/23 Spironolactone 12.5 mg PO DAILY 05/13/23 lisinopriL [Lisinopril] 5 mg PO DAILY 05/13/23 Pantoprazole Sodium 40 mg PO BID 30 Days #60 tab 05/18/23 New Medications: Pantoprazole Sodium 40 mg PO BID 30 Days #60 tab Physician Discharge Instructions: Patient presented with generalized weakness, dizziness, melena for past few days. Patient was found to have acute blood loss/symptomatic anemia secondary to suspected occult GI bleed. Hgb was 6.8 on admission. Patient required 2 uPRBC. Repeat hgb post transfusion improved to 10.1. Patient did not require any more blood transfusions. Hgb remained relatively stable in 8s for rest of hospitalization. GI was consulted. Patient taken to OR on 05/15, 05/16 for EGD / colonoscopy respectively to further evaluate GI bleed. Patient was found to have grade 1 esophagitis, mild diffuse gastritis, internal hemorrhoids. No active bleeds. Small bowel series was normal. No further inpatient work up. Recommend close follow up with GI as outpatient in 1-2 weeks for further work up / discuss possible capsule endoscopy. Recommend high fiber diet. The esophagitis and gastritis may have contributed to bleed, but can't rule out a bleeding source within the small intestine that could not be visualized by scopes. Bleeding did stop, and did not have any further dark stools and hemoglobin was stable. Patient was feeling better, ambulating without issues, abdominal pain improved, and was deemed stable for discharge. Advised to repeat blood work in ~1 week to monitor Hemoglobin / CBC. Hgb on discharge: 8.2. During her hospitalization, urine culture obtained on admission noted to grow E. coli. Patient was asymptomatic. Denied any urinary symptoms. She received ~3 days of empiric Rocephin as a precaution to cover possible UTI. Patient remained afebrile throughout her hospitalization. No further antibiotics warranted on discharge. Medications: Xarelto was held while hospitalized given GI bleed. Continue to hold xarelto for now. Okay to restart Sunday05/21/23. Pantoprazole, increased to twice a day for the next month, then can decrease back to once daily dosing Stop Hydralazine for now. Blood pressure this hospitalization has been low to low-normal off her home antihypertensives. Check blood pressure daily. Once consistently > 140, can restart Hydralazine as previously prescribed Advised to keep daily log of BP readings to take to follow up appointments in case home antihypertensives need to be adjusted / restarted. Continue other home meds not listed as previously prescribed. Follow up: PCP 3-5 days GI clinic 1-2 weeks Followup: Jaron Burgos MD [ASSOCIATE-ACTIVE - CAN ADMIT] - 1-2 Weeks MARINA LI [OUTSIDE PHYSICIAN] - (call for an apointment for 3-5 days. take discharge packet with you.) Time spent managing pt's care (in minutes): 45
== END 2023-05-18 16:03 | disposition home or self-care (01) | DRG 368 ==
LOC: ER 16:13 → 2ND 19:21 → UNDOADMIN 20:51
PROVIDERS: ADMIT Internal Medicine; ATTEND Hospitalist
PROC: 30233N1 Transfusion of Nonautologous Red Blood Cells into Peripheral Vein, Percutaneous Approach (ICD-10-PCS; 2023-05-13)
PROC: 0DB68ZX Excision of Stomach, Via Natural or Artificial Opening Endoscopic, Diagnostic (ICD-10-PCS; 2023-05-15)
PROC: 0DB78ZX Excision of Stomach, Pylorus, Via Natural or Artificial Opening Endoscopic, Diagnostic (ICD-10-PCS; 2023-05-15)
PROC: 0DJD8ZZ Inspection of Lower Intestinal Tract, Via Natural or Artificial Opening Endoscopic (ICD-10-PCS; principal; 2023-05-16 10:15)
DX: K20.91 Esophagitis, unspecified with bleeding (principal); K29.71 Gastritis, unspecified, with bleeding; D62 Acute posthemorrhagic anemia; N17.9 Acute kidney failure, unspecified; I48.20 Chronic atrial fibrillation, unspecified; N39.0 Urinary tract infection, site not specified; K64.8 Other hemorrhoids; I12.9 Hypertensive chronic kidney disease with stage 1 through stage 4 chronic kidney disease, or unspecified chronic kidney disease; N18.30 Chronic kidney disease, stage 3 unspecified; E11.22 Type 2 diabetes mellitus with diabetic chronic kidney disease; D63.1 Anemia in chronic kidney disease; I95.1 Orthostatic hypotension; B96.20 Unspecified Escherichia coli [E. coli] as the cause of diseases classified elsewhere; Z95.0 Presence of cardiac pacemaker; Z88.8 Allergy status to other drugs, medicaments and biological substances; Z79.01 Long term (current) use of anticoagulants; Z79.82 Long term (current) use of aspirin; Z79.02 Long term (current) use of antithrombotics/antiplatelets; Z79.899 Other long term (current) drug therapy
CPT/HCPCS: 36415; 36430; 70450; 71045; 72125; 74250; 80048; 80053; 80076; 81001; 82947; 83036; 83735; 84484; 85018; 85025; 85027; 86850; 86900; 86901; 86920; 87077; 87086; 87088; 87186; 88304; 88305; 88312; 93005; 97116; 97161; C9113; J0171; J0696; J1940; J2001; J2405; J2704; J2765; J7030; J7050; P9016